=== PATIENT | female | born 1960 | race Caucasian/White ===

== ENCOUNTER 2016-11-09 21:57 | Emergency (ER) | payer BC ==
[~2016-11-09] VITALS: Ht 157.5 cm; Wt 87.2 kg
[~2016-11-09 21:57] MED LIST: AMARYL1 MG PO; ASCORBIC ACID500 M3 PO; ASPIR-LOW81 MG PO; ASPIRIN81 M1 PO; ATENOLOL25 M1 PO; ATENOLOL25 MG PO; CALCIUM 600 +1 EAC9 PO; CLARITIN,ALAVAR10 MG PO; CYANOCOBAL1000 MCG/2 IM; DAILY VITAMIN1 EAC4 PO; ERGOCALCIF50000 UNIT PO; GLIPIZIDE5 MG PO; GLUCOTROL XL5 MG PO; IRON325 M1 PO; LEXAPRO20 MG PO; LIPITOR10 MG PO; LISINOPRIL5 MG PO; LO-DOSE ASPIRIN81 M2 PO; LOPRESSOR50 MG PO; MULTIVITAMIN1 EAC2 PO; NEXIUM40 MG PO; PRINIVIL5 MG PO; ROBITUSSIN AC,T10 ML PO; TAMIFLU75 MG PO; THERAGRAN1 TABLET PO; TYLENOL EXTRA500 MG PO; VITAMIN D31000 UNI2 PO; XANAX0.25 MG; XANAX0.25 MG PO; ZITHROMAX250 MG PO
[2016-11-09 22:50] LABS: HEMATOCRIT 36.2 % (36.0-46.0); MCHC 31.2 G/DL (30.0-36.0); MEAN PLAT.VOLUME 9.9 uM^3 (9.5-12.4); PLATELET COUNT 314 K/uL (156-360); RBC DIS.WIDTH-CV 15.6 % (11.8-14.6); RBC DIS.WIDTH-SD 43.8 % (39-53); WHITE BLOOD COUNT 7.7 K/uL (4.1-10.2)
[2016-11-09 22:58] LABS: CHLORIDE 106 mEq/L (99-109); POTASSIUM 4.3 mEq/L (3.7-5.4); SODIUM 142 mEq/L (136-147)
[2016-11-09 22:59] LABS: GLUCOSE 103 mg/dL (70-99)
[2016-11-09 23:01] LABS: ANION GAP 10 MEQ/L (2-14)
[2016-11-09 23:03] LABS: GFR ESTIMATE (CALCULATED) > 59 mL/min/
[2016-11-09 23:04] LABS: UREA NITROGEN (BUN) 21 mg/dL (9-23)
[2016-11-10 04:39] LABS: BILIRUBIN NEGATIVE; BLOOD NEGATIVE; COLOR YELLOW ((YELLOW)); GLUCOSE (STRIP) NEGATIVE; KETONES 5; LEUKOCYTES NEGATIVE; NITRITE NEGATIVE; PROTEIN (STRIP) NEGATIVE; SPECIFIC GRAVITY 1.026 (1.000-1.030); UROBILINOGEN 0.2 MG/DL (0.2-1.0)
[2016-11-10 04:59] LABS: ADD MIUA? NO; UCUL ADDED? NO
[2016-11-10 05:04] LABS: TOTAL BILIRUBIN 0.3 mg/dL (0.0-1.0)
[2016-11-10 05:05] LABS: ALKALINE PHOSPHATASE 70 IU/L (3-129)
[2016-11-10 05:08] LABS: DIRECT BILIRUBIN 0.1 mg/dL (0.0-0.3)
[2016-11-10 05:09] LABS: LIPASE 30 U/L (1.0-51.0)
[2016-11-10] MEDS ORDERED: BENTYL20 MG PO (05:54)
[2016-11-10] MEDS ORDERED: ZOFRAN8 MG PO (05:54)
[2016-11-10 06:17] VITALS: BP 140/79
== END 2016-11-10 06:19 | disposition home or self-care (01) ==
LOC: EME 21:57
DX: R10.13 Epigastric pain (principal); M54.6 Pain in thoracic spine; J45.909 Unspecified asthma, uncomplicated; E11.9 Type 2 diabetes mellitus without complications; I10 Essential (primary) hypertension; K21.9 Gastro-esophageal reflux disease without esophagitis; Z86.73 Personal history of transient ischemic attack (TIA), and cerebral infarction without residual deficits; Z79.82 Long term (current) use of aspirin; Z79.84 Long term (current) use of oral hypoglycemic drugs
CPT/HCPCS: 80048; 80076; 81003; 83690; 85027; 99281; 99284

== ENCOUNTER 2017-04-13 10:35 | Emergency (ER) | payer BC ==
[~2017-04-13] VITALS: Ht 157.5 cm; Wt 88.3 kg
[~2017-04-13 10:35] MED LIST changes: +BENTYL20 MG PO; +ZOFRAN8 MG PO
[2017-04-13 11:08] LABS: HEMATOCRIT 37.2 % (36.0-46.0); MCH 23.5 PG (29.0-34.0); MCHC 30.9 G/DL (30.0-36.0); MCV 75.9 FL (83-99); MEAN PLAT.VOLUME 9.7 uM^3 (9.5-12.4); PLATELET COUNT 277 K/uL (156-360); RBC DIS.WIDTH-CV 16.7 % (11.8-14.6); RBC DIS.WIDTH-SD 45.4 % (39-53); WHITE BLOOD COUNT 8.1 K/uL (4.1-10.2)
[2017-04-13 11:29] LABS: TROP-I INTERPRETATION NEGATIVE; TROPONIN-I < 0.01 ng/mL (0.0-0.30)
[2017-04-13 11:30] LABS: CHLORIDE 103 mEq/L (99-109); POTASSIUM 3.9 mEq/L (3.7-5.4); SODIUM 139 mEq/L (136-147)
[2017-04-13 11:32] LABS: GLUCOSE 137 mg/dL (70-99)
[2017-04-13 11:33] LABS: ANION GAP 12 MEQ/L (2-14)
[2017-04-13 11:34] LABS: TOTAL BILIRUBIN 0.3 mg/dL (0.0-1.0)
[2017-04-13 11:36] LABS: ALKALINE PHOSPHATASE 79 IU/L (3-129); GFR ESTIMATE (CALCULATED) > 59 mL/min/
[2017-04-13 11:37] LABS: UREA NITROGEN (BUN) 21 mg/dL (9-23)
[2017-04-13 11:39] LABS: LIPASE 48 U/L (1.0-51.0)
[2017-04-13] MEDS ORDERED: BENTYL10 MG PO (12:53)
[2017-04-13] MEDS ORDERED: ZOFRAN ODT4 MG PO (12:53)
[2017-04-13 13:02] LABS: ADD MIUA? NO; BILIRUBIN NEGATIVE; BLOOD NEGATIVE; COLOR YELLOW ((YELLOW)); GLUCOSE (STRIP) 50; KETONES NEGATIVE; LEUKOCYTES NEGATIVE; NITRITE NEGATIVE; PROTEIN (STRIP) NEGATIVE; UROBILINOGEN 0.2 MG/DL (0.2-1.0)
[2017-04-13 13:04] VITALS: BP 122/74
[2017-04-13 13:17] LABS: SPECIFIC GRAVITY 1.064 (1.000-1.030)
== END 2017-04-13 13:07 | disposition home or self-care (01) ==
LOC: EME 10:35
PROVIDERS: Nurse Practitioner Family
DX: R10.13 Epigastric pain (principal); K21.9 Gastro-esophageal reflux disease without esophagitis; M54.9 Dorsalgia, unspecified; I10 Essential (primary) hypertension; E11.9 Type 2 diabetes mellitus without complications; Z79.84 Long term (current) use of oral hypoglycemic drugs; Z79.82 Long term (current) use of aspirin; Z90.49 Acquired absence of other specified parts of digestive tract
CPT/HCPCS: 71275; 80053; 81003; 83690; 84484; 85027; 93005; 99281; 99284; J2405; J3010; J7030

== ENCOUNTER 2018-03-16 17:08 | Observation (INO) | payer BC ==
[~2018-03-16] VITALS: Ht 154.9 cm; Wt 85.1 kg
[~2018-03-16 17:08] MED LIST changes: +BENTYL10 MG PO; -VITAMIN D31000 UNI2 PO; +ZOFRAN ODT4 MG PO
[2018-03-16 18:47] LABS: HEMATOCRIT 41.5 % (36.0-46.0); HEMOGLOBIN 14.4 G/DL (11.9-15.5); MCH 29.1 PG (29.0-34.0); MCHC 34.7 G/DL (30.0-36.0); MCV 83.8 FL (83-99); PLATELET COUNT 282 K/uL (156-360); RBC DIS.WIDTH-CV 13.1 % (11.8-14.6); RBC DIS.WIDTH-SD 39.8 % (39-53); RED BLOOD COUNT 4.95 M/uL (3.80-5.20); WHITE BLOOD COUNT 8.4 K/uL (4.1-10.2)
[2018-03-16 18:58] LABS: CHLORIDE 101 mEq/L (99-109); POTASSIUM 4.4 mEq/L (3.7-5.4); SODIUM 136 mEq/L (136-147)
[2018-03-16 18:59] LABS: GLUCOSE 207 mg/dL (70-99)
[2018-03-16 19:03] LABS: CREATININE 1.1 mg/dL (0.6-1.3); GFR ESTIMATE (CALCULATED) 55 mL/min/
[2018-03-16 19:04] LABS: UREA NITROGEN (BUN) 17 mg/dL (9-23)
[2018-03-16 19:13] LABS: TROP-I INTERPRETATION NEGATIVE; TROPONIN-I < 0.01 ng/mL (0.0-0.30)
[2018-03-16] MEDS ORDERED: LISINOPRIL5 MG PO (19:42)
[2018-03-16 22:09] VITALS: BP 116/65
[2018-03-16 23:34] LABS: APPEARANCE CLEAR ((CLEAR)); BILIRUBIN NEGATIVE; BLOOD NEGATIVE; COLOR STRAW ((YELLOW)); GLUCOSE (STRIP) >=500; KETONES NEGATIVE; LEUKOCYTES NEGATIVE; NITRITE NEGATIVE; PROTEIN (STRIP) NEGATIVE; UROBILINOGEN 0.2 MG/DL (0.2-1.0)
[2018-03-17 03:52] VITALS: BP 113/62
[2018-03-17 06:03] LABS: ALBUMIN 3.7 G/DL (3.2-4.8); ALKALINE PHOSPHATASE 75 IU/L (3-129); ALT (GPT) 15 IU/L (3-49); AST (GOT) 12 IU/L (2-34); CHLORIDE 105 MEQ/L (99-109); CREATININE 0.8 MG/DL (0.6-1.3); GFR ESTIMATE (CALCULATED) > 59 mL/min/; GLUCOSE 163 mg/dL (70-99); HDL CHOLESTEROL 40 MG/DL (Desirable>=50); LDL CHOLESTEROL 142 mg/dL (Desirable<100); NON-HDL CHOLESTEROL 189 mg/dL (Desirable<160); POTASSIUM 4.2 MEQ/L (3.7-5.4); SODIUM 138 MEQ/L (136-147); TOTAL BILIRUBIN 0.4 MG/DL (0.0-1.0); TOTAL CHOLESTEROL 229 mg/dL (Desirable<200); TOTAL PROTEIN 6.2 G/DL (6.4-8.3); TRIGLYCERIDES 236 MG/DL (Normal: <150); UREA NITROGEN (BUN) 18 mg/dL (9-23)
[2018-03-17 07:00] VITALS: BP 112/63
[2018-03-17 12:13] VITALS: BP 121/68
[2018-03-17 13:23] LABS: HEMOGLOBIN A1c (GLYCOHEMOGLOB) 8.9 % (Below 5.7)
[2018-03-17 16:12] VITALS: BP 129/71
[2018-03-17 18:57] VITALS: BP 146/76
[2018-03-17 23:43] VITALS: BP 110/64
[2018-03-18 04:04] VITALS: BP 115/59
[2018-03-18 07:55] VITALS: BP 113/62
[2018-03-18 12:19] VITALS: BP 114/60
[2018-03-18] MEDS ORDERED: ASPIR-LOW81 MG PO (15:30)
== END 2018-03-18 15:52 | disposition home or self-care (01) ==
LOC: EME 17:08 → 4SOUTH 20:24 → EDOF 20:24 → ENRESERV 20:37 → 4SOUTH 21:57
PROVIDERS: Emergency Medicine; Internal Medicine
DX: R53.1 Weakness (principal); R20.0 Anesthesia of skin; R51 Headache; Z86.73 Personal history of transient ischemic attack (TIA), and cerebral infarction without residual deficits; I10 Essential (primary) hypertension; E11.9 Type 2 diabetes mellitus without complications; E53.8 Deficiency of other specified B group vitamins; E78.5 Hyperlipidemia, unspecified; K21.9 Gastro-esophageal reflux disease without esophagitis; F41.9 Anxiety disorder, unspecified; F32.9 Major depressive disorder, single episode, unspecified; R42 Dizziness and giddiness; Z79.82 Long term (current) use of aspirin; Z79.84 Long term (current) use of oral hypoglycemic drugs; E55.9 Vitamin D deficiency, unspecified; Z88.0 Allergy status to penicillin; Z88.1 Allergy status to other antibiotic agents; Z88.5 Allergy status to narcotic agent; Z82.49 Family history of ischemic heart disease and other diseases of the circulatory system; Z83.3 Family history of diabetes mellitus
CPT/HCPCS: 70450; 70551; 71046; 80048; 80053; 80061; 81003; 83036; 84484; 85027; 93005; 93880; 99281; 99285; G0378; J0780; J1200; J1644; J7040